=== PATIENT | male | born 1950 | race Caucasian/White ===

== ENCOUNTER 2016-12-01 14:43 | Emergency (ER) | payer MEDICARE, OTHER ==
[~2016-12-01] VITALS: Ht 180.3 cm; Wt 104.7 kg
[~2016-12-01 14:43] MED LIST: CLON.5 PO; CLON1TAB PO; ESCI10TA PO; HYDR1CAP30 PO; LISD60 PO; QUET1TAB7 PO; QUET1TAB8 PO
[2016-12-01 14:54] VITALS: BP 112/67; PULSE 77; RESP 18; TEMP 98.1; O2SAT 92
[2016-12-01] MEDS ORDERED: OXYC-395 PO (15:08)
--- NOTE | 2016-12-01 15:31 | PD ---
HPI Chief Complaint: Pain: Acute or Chronic Time Seen by Provider: 15:26 Travel History International Travel<30 days: No Contact w/Intl Traveler<30days: No Traveled to known affect area: No History of Present Illness HPI 66-year-old male with a history of diabetes, anxiety and depression presents to the emergency department for evaluation of left foot pain for 4 weeks. Patient states that 4 weeks ago he was walking in his home and his shoe got caught underneath a door causing him to have to jerk and pull it out which caused him to hit the medial posterior aspect of his heel on a bar. States that he's had pain in this location since this occurred. Aggravated with walking. States that he has been soaking the foot in Epsom salts without improvement of symptoms. States that he thought it would go away on its own but the symptoms have persisted which is why he now presents for evaluation. Denies any fever, chills, nausea, vomiting, numbness or tingling, weakness, abrasions, swelling, redness or warmth. No other complaints. PFSH Past Medical History ADHD: Yes Arthritis: Yes Autoimmune Disease: No Blood Disorders: No Anxiety: Yes Depression: Yes Cancer: No Cardiovascular Problems: No High Cholesterol: Yes Diabetes: Yes Patient Takes Glucophage: No Diminished Hearing: No Endocrine: No Genitourinary: No Headaches: No Hepatitis: Yes (HEP C+) Immune Disorder: No Musculoskeletal: Yes Neurologic: No Psychiatric: Yes (anxiety, depression) Respiratory: No Immunizations Current: Yes Seizures: No Tetanus Vaccination: > 5 Years Influenza Vaccination: No Social History Alcohol Use: No (PAST HEAVY) Tobacco Use: No (POT IN PAST) Substance Use: No (Denies) Allergies-Medications (Allergen,Severity, Reaction): Coded Allergies: Morphine (Verified Adverse Reaction, Intermediate, CAUSES CHEST APIN, ) Reported Meds & Prescriptions Reported Meds & Active Scripts Active Klonopin (Clonazepam) 0.5 Mg Tab 0.5 Mg PO Q8HR Quetiapine (Quetiapine Fumarate) 25 Mg Tab 25 Mg PO BID@09,12 Quetiapine (Quetiapine Fumarate) 100 Mg Tab 100 Mg PO HS Escitalopram (Escitalopram Oxalate) 10 Mg Tab 10 Mg PO DAILY Reported Oxycodone (Oxycodone HCl) 10 Mg Tab 10 Mg PO Q6H PRN Hydroxyzine Pamoate 25 Mg Cap 50 Mg PO Q6H PRN Clonazepam 1 Mg Tab 1 Mg PO BID Vyvanse (Lisdexamfetamine Dimesylate) 60 Mg Cap 60 Mg PO DAILY Review of Systems Except as stated in HPI: all other systems reviewed are Neg Physical Exam Narrative GENERAL: Well-nourished and well-developed pleasant male patient in no acute distress who is nontoxic appearing. SKIN: Warm and dry. HEAD: Normocephalic and atraumatic. EYES: No injection, drainage, or hyphema noted. PERRLA. EOMI. ENT: No nasal drainage noted. Oropharynx is clear. NECK: Supple and the trachea is midline. CARDIOVASCULAR: Regular rate and rhythm. RESPIRATORY: Breath sounds are equal bilaterally with no accessory muscle use, wheezing, rhonchi, or crackles. EXTREMITY: The left medial posterior foot and heel is tender to palpation. No swelling, deformity, contusion, redness or warmth. The skin is intact and there is no ligamentous instability. The foot and toes are warm and well- perfused. Sensation to pain and light touch is intact. DP pulses are 2+ bilaterally. Normal Oneal's test. NEUROLOGICAL: Awake, alert, and oriented. Normal speech and gait. Cranial nerves are grossly intact. Data Data Last Documented VS Vital Signs Date Time Temp Pulse Resp B/P Pulse Ox O2 Delivery O2 Flow Rate FiO2 12/01/16 14:54 98.1 77 18 112/67 92 Orders Foot, Complete ([id number]) (12/01/16 15:25) Splint Or Brace Apply/Monitor (12/01/16 16:10) MDM Medical Decision Making Medical Screen Exam Complete: Yes Emergency Medical Condition: Yes Differential Diagnosis Contusion versus plantar fasciitis versus sprain versus heel spur Narrative Course 66-year-old male presents to the emergency department for evaluation of left heel and posterior foot pain for 4 weeks after injuring the foot. Patient is afebrile, vital signs are stable. The patient's left foot is neurovascularly intact. X-ray imaging has been ordered and is pending. X-ray imaging shows a spur at the insertion site of the Achilles tendon, no acute abnormalities. I suspect that his heel spur is the etiology of the patient's pain. Discussed supportive care with him. He is requesting an hima wrap for comfort and is provided one here in the ED. He is advised to follow-up with a History Professor as an outpatient. Patient verbalizes understanding and agreement with treatment plan. Diagnosis Primary Impression: Heel spur Qualified Code: M77.32 - Heel spur, left Referrals: History Professor Patient Instructions: General Instructions, Heel Spur (ED) Additional Instructions: Follow-up with your Primary Care Physician or a History Professor. Return to the ED for any acute worsening of symptoms. Med/Other Pt SpecificInfo: No Change to Meds Disposition: 01 DISCHARGE HOME Condition: Stable Cheri Layton Dec 01, 2016 15:31
--- NOTE | 2016-12-01 15:52 | RADHPO ---
EXAM DATE/TIME: 12/01/2016 15:33 [facility] COMPARISON: HUMERUS LEFT (MIN 2VWS), August 27, 2013, 16:43. INDICATIONS : Left heel pain after being wedged in door. MEDICAL HISTORY : None. SURGICAL HISTORY : None. ENCOUNTER: Initial ACUITY: 3 weeks PAIN SCORE: 7/10 LOCATION: Left foot FINDINGS: The osseous structures are intact. Incidental note is made of a spur at the insertion of the Achilles tendon. No acute fracture of the calcaneus is seen. No significant soft tissue swelling is identifie d. CONCLUSION: 1. No acute fracture identified. Dexter Hutchinson MD on December 01, 2016 at 15:50 Board Certified Radiologist. This report was verified electronically.
== END 2016-12-01 16:17 | disposition home or self-care (01) ==
LOC: PHEFT 14:43
DX: M77.32 Calcaneal spur, left foot (principal); E78.00 Pure hypercholesterolemia, unspecified; E11.9 Type 2 diabetes mellitus without complications; B19.20 Unspecified viral hepatitis C without hepatic coma
CPT/HCPCS: 73630; 99283

== ENCOUNTER 2017-05-03 10:22 | Emergency (ER) | payer OTHER ==
[~2017-05-03] VITALS: Ht 175.3 cm; Wt 96.0 kg
[~2017-05-03 10:22] MED LIST changes: +OXYC-395 PO
[2017-05-03 10:27] VITALS: BP 130/68; PULSE 80; RESP 18; TEMP 98.7; O2SAT 98
[2017-05-03] MEDS ORDERED: LORazepam 1 MG TAB PO ONE (10:45)
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
== END 2017-05-03 11:50 | disposition home or self-care (01) ==
LOC: PHED 10:22
DX: F32.9 Major depressive disorder, single episode, unspecified (principal); G89.29 Other chronic pain; E11.9 Type 2 diabetes mellitus without complications; B19.20 Unspecified viral hepatitis C without hepatic coma
CPT/HCPCS: 99283

== ENCOUNTER 2017-05-05 10:04 | Emergency (ER) | payer OTHER ==
[~2017-05-05] VITALS: Ht 175.3 cm; Wt 90.0 kg
[~2017-05-05 10:04] MED LIST changes: -CLON.5 PO; -HYDR1CAP30 PO; -LISD60 PO; -OXYC-395 PO; -QUET1TAB7 PO; -QUET1TAB8 PO
[2017-05-05 10:11] VITALS: BP 98/52; PULSE 76; RESP 18; TEMP 98; O2SAT 96
[2017-05-05] MEDS ORDERED: SODIUM CHLOR 0.9% 1000 ML INJ 1,000 ML IV SCH (10:17)
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
[2017-05-05] MEDS ORDERED: LORazepam 2 MG/ML VIAL IV PUSH ONE (10:30)
[2017-05-05] MEDS ORDERED: SODIUM CHLORIDE 0.9% FLUSH 10 ML FLUSH IV FLUSH PRN (10:30)
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
[2017-05-05] MEDS ORDERED: LIDOCAINE HCL 1% 50 ML VIAL INFIL ONE (11:00)
[2017-05-05] MEDS ORDERED: TETANUS/DIPHTHERIA TOXOID ADULT 0.5 ML VIAL IM ONE (11:00)
[2017-05-05 11:12] LABS: AUTOMATED NEUTROPHIL # 2.9 TH/MM3 (1.8-7.7); BASOPHIL % 0.4 % (0.0-2.0); EOSINOPHIL # 0.2 TH/MM3 (0-0.4); EOSINOPHIL % 3.2 % (0.0-4.0); HEMATOCRIT 45.9 % (39.0-51.0); HEMO FLAGS DIFF FINAL; LYMPH % 37.1 % (9.0-44.0); LYMPHOCYTE # 2.1 TH/MM3 (1.0-4.8); MEAN CELL VOLUME 96.3 FL (80.0-100.0); MEAN CORPUSCULAR HEMOGLOBIN 32.8 PG (27.0-34.0); MEAN CORPUSCULAR HGB CONC 34.1 % (32.0-36.0); MONO % 8.5 % (0.0-8.0); NEUT % 50.8 % (16.0-70.0); PLATELET COUNT 114 TH/MM3 (150-450); RED BLOOD COUNT 4.77 MIL/MM3 (4.50-5.90); RED CELL DISTRIBUTION WIDTH 13.4 % (11.6-17.2); WHITE BLOOD COUNT 5.8 TH/MM3 (4.0-11.0)
[2017-05-05 11:26] LABS: PROTHROMBIN TIME - PATIENT 11.3 SEC (9.8-11.6)
[2017-05-05 11:35] LABS: ALT (GPT) 79 U/L (12-78); ANION GAP 8 MEQ/L (5-15); AST (GOT) 55 U/L (15-37); BICARBONATE 25.4 MEQ/L (21.0-32.0); BLOOD UREA NITROGEN 10 MG/DL (7-18); CHLORIDE 106 MEQ/L (98-107); GLOMERULAR FILTRATION RATE 67 ML/MIN (>89); SODIUM (NA) 139 MEQ/L (136-145)
[2017-05-05 11:36] LABS: ALKALINE PHOSPHATASE 45 U/L (45-117); TOTAL BILIRUBIN ADULT 0.9 MG/DL (0.2-1.0)
[2017-05-05] MEDS ORDERED: IOHEXOL 350 MG/ML 10 ML VIAL (for RAD DIAG) IVCONTRAST ONE (14:00)
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
[2017-05-05] MEDS ORDERED: ROBA500T PO (14:59)
[2017-05-06] MEDS ORDERED: VIST25CA PO (11:07)
[2017-05-06] MEDS ORDERED: GLIP10TA6 PO (11:07)
== END 2017-05-05 15:44 | disposition home or self-care (01) ==
LOC: NEPD 10:04
DX: S61.216A Laceration without foreign body of right little finger without damage to nail, initial encounter (principal); K76.0 Fatty (change of) liver, not elsewhere classified; R16.1 Splenomegaly, not elsewhere classified; F41.9 Anxiety disorder, unspecified; M19.90 Unspecified osteoarthritis, unspecified site; E11.9 Type 2 diabetes mellitus without complications; V43.52XA Car driver injured in collision with other type car in traffic accident, initial encounter; Z86.19 Personal history of other infectious and parasitic diseases; Z23 Encounter for immunization
CPT/HCPCS: 12001; 70450; 71010; 72125; 74177; 80053; 85025; 85610; 85730; 90471; 90714; 96361; 96374; 99285; J2060; J7030; Q9967

== ENCOUNTER 2017-05-06 10:35 | Emergency (ER) | payer OTHER ==
[~2017-05-06] VITALS: Ht 177.8 cm; Wt 100.0 kg
[~2017-05-06 10:35] MED LIST changes: +ROBA500T PO
[2017-05-06 10:51] VITALS: BP 129/63; PULSE 82; RESP 24; TEMP 98.4; O2SAT 96
[2017-05-06] MEDS ORDERED: GLIP10TA6 PO (11:07)
[2017-05-06] MEDS ORDERED: VIST25CA PO (11:07)
--- NOTE | 2017-05-06 11:10 | PD ---
HPI Chief Complaint: Medical Clearance Time Seen by Provider: 10:57 Travel History International Travel<30 days: No Contact w/Intl Traveler<30days: No Traveled to known affect area: No History of Present Illness HPI This patient complains of anxiety symptoms. He came from across the street where he was staying [facility]. He feels nervous and anxious. He also is worried about a blood sugar being high. Accu-Chek was 138 in triage. Symptoms severity is mild PFSH Past Medical History ADHD: Yes Arthritis: Yes Autoimmune Disease: No Blood Disorders: No Anxiety: Yes Depression: Yes Cancer: No Cardiovascular Problems: No High Cholesterol: Yes Diabetes: Yes Patient Takes Glucophage: No Diminished Hearing: No Endocrine: No Genitourinary: No Headaches: No Hepatitis: Yes (HEP C+) Immune Disorder: No Musculoskeletal: Yes Neurologic: No Psychiatric: Yes (anxiety, depression) Reproductive: No Respiratory: No Immunizations Current: Yes Seizures: No Social History Alcohol Use: No (PAST HEAVY) Tobacco Use: No Substance Use: No (Denies) Allergies-Medications (Allergen,Severity, Reaction): Coded Allergies: morphine (Unverified Adverse Reaction, Intermediate, CAUSES CHEST APIN, 06/12) Reported Meds & Prescriptions Reported Meds & Active Scripts Active Vistaril (Hydroxyzine Pamoate) 25 Mg Cap 25 Mg PO TID PRN Glipizide 10 Mg Tab 10 Mg PO DAILY Take 30 minutes before a meal Robaxin (Methocarbamol) 500 Mg Tab 500 Mg PO QID PRN Escitalopram (Escitalopram Oxalate) 10 Mg Tab 10 Mg PO DAILY Reported Clonazepam 1 Mg Tab 1 Mg PO BID Review of Systems General / Constitutional: No: Fever HENT: No: Headaches Cardiovascular: No: Chest Pain or Discomfort Physical Exam Narrative GASTROINTESTINAL: Abdomen soft, non-tender, nondistended. Positive bowel sounds. No hepato-splenomegaly, or palpable masses. No guarding. CARDIOVASCULAR: Regular rate and rhythm without murmur. Extremities showed no edema or varicosities. Data Data Last Documented VS Vital Signs Date Time Temp Pulse Resp B/P (MAP) Pulse Ox O2 Delivery O2 Flow Rate FiO2 05/06/17 10:51 98.4 82 24 129/63 (85) 96 Room Air MDM Medical Decision Making Medical Screen Exam Complete: Yes Emergency Medical Condition: Yes Medical Record Reviewed: Yes Differential Diagnosis Anxiety, panic, malingering Narrative Course I have reviewed the patient's electronic medical record. Patient had extensive workup yesterday which was negative I gave the patient and dose of oral Ativan here and prescription for Vistaril and refilled his glipizide Stable for return to the care home Diagnosis Primary Impression: Anxiety attack Additional Impression: Medication refill Additional Instructions: The patient was advised to follow up with their physician and return if they worsen. The patient was warned about potential sedation for the medications they will receive on prescription. Med/Other Pt SpecificInfo: Prescription(s) given Scripts Hydroxyzine Pamoate (Vistaril) 25 Mg Cap 25 MG PO TID Y for ANXIETY, #15 CAP 0 Refills Prov: Ankur Patel MD 05/06/17 Glipizide (Glipizide) 10 Mg Tab 10 MG PO DAILY for Blood Sugar Management, #30 TAB 0 Refills Take 30 minutes before a meal Prov: Ankur Patel MD 05/06/17 Disposition: 01 DISCHARGE HOME Condition: Stable Ankur Patel MD May 06, 2017 11:10
[2017-05-06] MEDS ORDERED: LORazepam 1 MG TAB PO ONE (11:15)
== END 2017-05-06 13:46 | disposition home or self-care (01) ==
LOC: NEPD 10:35
DX: F41.9 Anxiety disorder, unspecified (principal)
CPT/HCPCS: 99284

== ENCOUNTER 2017-06-22 18:36 | Emergency (ER) | payer OTHER ==
[~2017-06-22] VITALS: Ht 175.3 cm; Wt 95.5 kg
[~2017-06-22 18:36] MED LIST changes: +GLIP10TA6 PO; +VIST25CA PO
[2017-06-22 18:38] VITALS: BP 130/71; PULSE 87; RESP 14; TEMP 99; O2SAT 96
[2017-06-22 19:41] VITALS: BP 143/77; PULSE 83; RESP 14; O2SAT 97
[2017-06-22] MEDS ORDERED: QUET5TAB PO ×2 (19:52)
[2017-06-22] MEDS ORDERED: TEMA30CA PO ×2 (19:52)
[2017-06-22] MEDS ORDERED: ZOLP10TA3 PO ×2 (19:52)
[2017-06-22] MEDS ORDERED: DIAZ10TA PO ×2 (19:52)
[2017-06-22] MEDS ORDERED: GLIP5TAB8 PO ×2 (19:52)
[2017-06-22] MEDS ORDERED: OMEP20TA PO ×2 (19:52)
--- NOTE | 2017-06-22 19:52 | PD ---
HPI Chief Complaint: General Weakness Time Seen by Provider: 19:37 Travel History International Travel<30 days: No Contact w/Intl Traveler<30days: No Traveled to known affect area: No History of Present Illness HPI This is a 66 year old male who presents to the emergency department with jitteriness that's been going on for 2 weeks, worsening, feeling like he is restless, can't get comfortable in his own skin. His symptoms of a constant, moderate severity and are limiting him from sleeping. He feels like his symptoms have started ever since he was put on quetiapine and diazepam by his primary care physician for anxiety. He denies any history of mental illness. He denies any headaches, weakness, numbness or other neurologic symptoms. PFSH Past Medical History ADHD: Yes Arthritis: Yes Autoimmune Disease: No Blood Disorders: No Anxiety: Yes Depression: Yes Cancer: No Cardiovascular Problems: No High Cholesterol: Yes Diabetes: Yes Diminished Hearing: No Endocrine: No Genitourinary: No Headaches: No Hepatitis: Yes (HEP C+) Immune Disorder: No Musculoskeletal: Yes Neurologic: No Psychiatric: Yes (anxiety, depression) Reproductive: No Respiratory: No Immunizations Current: Yes Seizures: No Social History Alcohol Use: No (PAST HEAVY) Tobacco Use: No Substance Use: No (Denies) Allergies-Medications (Allergen,Severity, Reaction): Coded Allergies: morphine (Unverified Adverse Reaction, Intermediate, CAUSES CHEST APIN, 06/12) Reported Meds & Prescriptions Reported Meds & Active Scripts Active Reported Omeprazole 20 Mg Tab 20 Mg PO DAILY Temazepam 30 Mg Cap 30 Mg PO HS PRN Zolpidem (Zolpidem Tartrate) 10 Mg Tab 10 Mg PO HS PRN Quetiapine (Quetiapine Fumarate) 50 Mg Tab 50 Mg PO BID Glipizide 5 Mg Tab 5 Mg PO BIDAC Take 30 minutes before a meal Diazepam 10 Mg Tab 10 Mg PO QID PRN Review of Systems Except as stated in HPI: all other systems reviewed are Neg Physical Exam Narrative GENERAL:Well appearing, no acute distress SKIN: Focused skin assessment warm and dry. HEAD: Atraumatic. Normocephalic. EYES: Pupils equal and round. No injection or drainage. ENT: Moist mucous membranes NECK: Trachea midline. CARDIOVASCULAR: Regular rate and rhythm. No murmur appreciated. RESPIRATORY: Clear to auscultation. Breath sounds equal bilaterally. GASTROINTESTINAL: Abdomen soft, non-tender, nondistended. MUSCULOSKELETAL: No obvious deformities. NEUROLOGICAL: Awake and alert. No obvious cranial nerve deficits. Moving all extremities. PSYCHIATRIC: Appropriate mood and affect; insight and judgment normal. Data Data Last Documented VS Vital Signs Date Time Temp Pulse Resp B/P (MAP) Pulse Ox O2 Delivery O2 Flow Rate FiO2 06/22/17 19:42 82 14 97 Room Air 06/22/17 19:41 143/77 (99) 06/22/17 18:38 99.0 MDM Medical Decision Making Medical Screen Exam Complete: Yes Emergency Medical Condition: Yes Interpretation(s) afebrile, no tachycardia, normotensive Differential Diagnosis extrapyramidal side effects, anxiety, panic attack, seizure, tremor Narrative Course This is a 66 year old male who presents to the emergency department with increasing jitteriness described as feeling restless in his skin. I suspect these are extrapyramidal side effects from his quetiapine. I advised that the patient discontinue quetiapine and use Cogentin as needed for symptoms until they subside. He was asked to follow-up with his primary care physician as soon as possible to discuss a change in medications. Diagnosis Primary Impression: Extrapyramidal reaction Patient Instructions: General Instructions Additional Instructions: If you develop severe worsening headache, persistent vomiting, numbness, weakness, difficulty walking or difficulty talking return to the emergency department immediately. Follow-up with your primary care physician regarding the changes in your medicine. Med/Other Pt SpecificInfo: Prescription(s) given, Med Stopped Scripts Benztropine (Benztropine) 0.5 Mg Tab 0.5 MG PO HS, #10 TAB 0 Refills Prov: Sandra De Leon MD 06/22/17 Disposition: 01 DISCHARGE HOME Condition: Stable Sandra De Leon MD Jun 22, 2017 19:52
[2017-06-22] MEDS ORDERED: BENZ0.5T PO ×2 (19:55)
[2017-06-22] MEDS ORDERED: BENZTROPINE MESYLATE 1 MG TAB PO ONE ×2 (20:00)
== END 2017-06-22 20:30 | disposition home or self-care (01) ==
LOC: NEPC 18:36
DX: G25.9 Extrapyramidal and movement disorder, unspecified (principal); F90.9 Attention-deficit hyperactivity disorder, unspecified type; M19.90 Unspecified osteoarthritis, unspecified site; F41.9 Anxiety disorder, unspecified; F32.9 Major depressive disorder, single episode, unspecified; E78.00 Pure hypercholesterolemia, unspecified; E11.9 Type 2 diabetes mellitus without complications; B19.20 Unspecified viral hepatitis C without hepatic coma; Z79.899 Other long term (current) drug therapy
CPT/HCPCS: 99283

== ENCOUNTER 2017-07-29 11:41 | Emergency (ER) | payer OTHER ==
[~2017-07-29] VITALS: Ht 175.3 cm; Wt 98.0 kg
[~2017-07-29 11:41] MED LIST changes: +BENZ0.5T PO; -CLON1TAB PO; +DIAZ10TA PO; -ESCI10TA PO; -GLIP10TA6 PO; +GLIP5TAB8 PO; +OMEP20TA93 PO; +QUET5TAB PO; -ROBA500T PO; +TEMA30CA PO; -VIST25CA PO; +ZOLP10TA3 PO
[2017-07-29 11:43] VITALS: BP 119/70; PULSE 70; RESP 22; TEMP 98.1; O2SAT 96
[2017-07-29] MEDS ORDERED: HYDR-3580 PO (12:10)
[2017-07-29] MEDS ORDERED: OXCA300T PO (12:10)
[2017-07-29] MEDS ORDERED: VIST25CA PO (12:39)
--- NOTE | 2017-07-29 12:39 | PD ---
HPI Chief Complaint: Medical Clearance Time Seen by Provider: 12:27 Travel History International Travel<30 days: No Contact w/Intl Traveler<30days: No Traveled to known affect area: No History of Present Illness HPI 66-year-old male complains of anxiety and insomnia. Patient has history chronic insomnia and anxiety. Patient was seen by personal physician recently and given prescription for diazepam. Patient states that he has anxiety and insomnia despite taking diazepam. Patient also has been taking zolpidem for insomnia. Patient denies any headache. Patient denies any chest pain or shortness of breath. Patient denies abdominal pain. Patient denies any nausea vomiting. Patient denies any fever chills. Patient has been taking hydrocodone for chronic pain. PFSH Past Medical History ADHD: Yes Arthritis: Yes Autoimmune Disease: No Blood Disorders: No Anxiety: Yes Depression: Yes Cancer: No Cardiovascular Problems: No High Cholesterol: Yes Diabetes: Yes Patient Takes Glucophage: No Diminished Hearing: No Endocrine: No Genitourinary: No Headaches: No Hepatitis: Yes (HEP C+) Immune Disorder: No Musculoskeletal: Yes Neurologic: No Psychiatric: Yes (anxiety, depression) Reproductive: No Respiratory: No Immunizations Current: Yes Seizures: No Social History Alcohol Use: No (PAST HEAVY) Tobacco Use: No Substance Use: No (Denies) Allergies-Medications (Allergen,Severity, Reaction): Coded Allergies: morphine (Unverified Adverse Reaction, Intermediate, CAUSES CHEST APIN, ) Reported Meds & Prescriptions Reported Meds & Active Scripts Active Benztropine (Benztropine Mesylate) 0.5 Mg Tab 0.5 Mg PO HS Reported Hydrocodone-Acetaminophen 7.5 Mg-325 Mg Tab 1 Tab PO TID PRN Oxcarbazepine 300 Mg Tab 300 Mg PO BID Omeprazole 20 Mg Tab 20 Mg PO DAILY Zolpidem (Zolpidem Tartrate) 10 Mg Tab 10 Mg PO HS PRN Glipizide 5 Mg Tab 5 Mg PO BIDAC Take 30 minutes before a meal Diazepam 10 Mg Tab 10 Mg PO QID PRN Review of Systems General / Constitutional: No: Fever Eyes: No: Visual changes HENT: No: Headaches Cardiovascular: No: Chest Pain or Discomfort Respiratory: No: Shortness of Breath Gastrointestinal: No: Abdominal Pain Genitourinary: No: Dysuria Musculoskeletal: No: Pain Skin: No Rash Neurologic: No: Weakness Psychiatric: No: Depression Endocrine: No: Polydipsia Hematologic/Lymphatic: No: Easy Bruising Physical Exam Narrative GENERAL: Well-nourished, well-developed patient. SKIN: Focused skin assessment warm/dry. HEAD: Normocephalic. EYES: No scleral icterus. No injection or drainage. NECK: Supple, trachea midline. No JVD or lymphadenopathy. CARDIOVASCULAR: Regular rate and rhythm without murmurs, gallops, or rubs. RESPIRATORY: Breath sounds equal bilaterally. No accessory muscle use. GASTROINTESTINAL: Abdomen soft, non-tender, nondistended. MUSCULOSKELETAL: No cyanosis, or edema. BACK: Nontender without obvious deformity. No CVA tenderness. Neurologic exam normal. Data Data Last Documented VS Vital Signs Date Time Temp Pulse Resp B/P (MAP) Pulse Ox O2 Delivery O2 Flow Rate FiO2 07/29/17 11:43 98.1 70 22 119/70 (86) 96 MDM Medical Decision Making Medical Screen Exam Complete: Yes Emergency Medical Condition: Yes Differential Diagnosis Differential diagnosis including insomnia, anxiety. Narrative Course 66-year-old male with anxiety and insomnia. Diagnosis Primary Impression: Generalized anxiety disorder Additional Impression: Insomnia Qualified Codes: F51.01 - Primary insomnia Patient Instructions: General Instructions Additional Instructions: Vistaril as needed. Follow-up with local physician. Med/Other Pt SpecificInfo: Prescription(s) given Scripts Hydroxyzine Pamoate (Vistaril) 25 Mg Cap 25 MG PO TID Y for ANXIETY, #30 CAP 0 Refills Prov: Prosper Stahl MD 07/29/17 Disposition: 01 DISCHARGE HOME Condition: Stable Prosper Stahl MD Jul 29, 2017 12:39
== END 2017-07-29 12:55 | disposition home or self-care (01) ==
LOC: NEPD 11:41
DX: F41.1 Generalized anxiety disorder (principal); G47.00 Insomnia, unspecified; F90.9 Attention-deficit hyperactivity disorder, unspecified type; E78.00 Pure hypercholesterolemia, unspecified; E11.9 Type 2 diabetes mellitus without complications; Z86.19 Personal history of other infectious and parasitic diseases
CPT/HCPCS: 99283

== ENCOUNTER 2017-09-01 13:43 | Emergency (ER) | payer OTHER ==
[~2017-09-01] VITALS: Ht 175.3 cm; Wt 94.2 kg
[~2017-09-01 13:43] MED LIST changes: +HYDR-3580 PO; +OXCA300T PO; -QUET5TAB PO; -TEMA30CA PO; +VIST25CA PO
[2017-09-01 13:59] VITALS: BP 119/66; PULSE 72; RESP 16; TEMP 97.9; O2SAT 96
[2017-09-01] MEDS ORDERED: ZOLP5TAB3 PO (14:48)
[2017-09-01] MEDS ORDERED: CIPR500T2 PO (14:48)
[2017-09-01] MEDS ORDERED: DIAZ5TAB PO (14:48)
[2017-09-01] MEDS ORDERED: LOMO2.5T PO (14:48)
[2017-09-01] MEDS ORDERED: LORazepam 1 MG TAB PO ONE (15:00)
--- NOTE | 2017-09-01 15:45 | PD ---
HPI Chief Complaint: Anxiety Time Seen by Provider: 14:18 Travel History International Travel<30 days: No Contact w/Intl Traveler<30days: No Traveled to known affect area: No History of Present Illness HPI This is a 66-year-old male who has a history of anxiety who presents to the emergency department with a panic attack. He says he feels very anxious, constant, severe, feels jitteriness in skin and is having trouble sleeping. He' s had this problem in the past for several months. He sees a psychiatrist who has recently titrated many of his medications but he is not sure what changes have been made. He thinks he has just been prescribed hydroxyzine. Additionally his primary care doctor put him on Lomotil because he was having diarrhea. He also is on Trileptal which he has been taking for 3 weeks but says he doesn't have seizures. He comes with his [id number] who is concerned because the patient used to be very functional and seems to be deteriorating and not doing well on all of the medications that he is on. PFSH Past Medical History ADHD: Yes Arthritis: Yes Autoimmune Disease: No Blood Disorders: No Anxiety: Yes Depression: Yes Cancer: No Cardiovascular Problems: No High Cholesterol: Yes Diabetes: Yes (type 2) Patient Takes Glucophage: No Diminished Hearing: No Endocrine: No Genitourinary: No Headaches: No Hepatitis: Yes (HEP C+) Immune Disorder: No Musculoskeletal: Yes Neurologic: No Psychiatric: Yes (anxiety, depression) Reproductive: No Respiratory: No Immunizations Current: Yes Seizures: No Social History Alcohol Use: No (QUIT) Tobacco Use: No (NEVER) Substance Use: No (Denies) Allergies-Medications (Allergen,Severity, Reaction): Coded Allergies: morphine (Unverified Adverse Reaction, Intermediate, CAUSES CHEST APIN, 09/01/17) Reported Meds & Prescriptions Reported Meds & Active Scripts Active Vistaril (Hydroxyzine Pamoate) 25 Mg Cap 25 Mg PO TID PRN Reported Lomotil (Diphenoxylate-Atropine) 2.5-0.025 Mg Tab 1 Tab PO Q6H PRN Ciprofloxacin (Ciprofloxacin HCl) 500 Mg Tab 500 Mg PO BID Zolpidem (Zolpidem Tartrate) 5 Mg Tab 5 Mg PO HS PRN Diazepam 5 Mg Tab 5 Mg PO DAILY Hydrocodone-Acetaminophen 7.5 Mg-325 Mg Tab 1 Tab PO TID PRN Oxcarbazepine 300 Mg Tab 300 Mg PO BID Glipizide 5 Mg Tab 5 Mg PO BIDAC Take 30 minutes before a meal Review of Systems Except as stated in HPI: all other systems reviewed are Neg Physical Exam Narrative GENERAL:Well appearing, no acute distress SKIN: Focused skin assessment warm and dry. HEAD: Atraumatic. Normocephalic. EYES: Pupils equal and round. No injection or drainage. ENT: Moist mucous membranes NECK: Trachea midline. CARDIOVASCULAR: Regular rate and rhythm. No murmur appreciated. RESPIRATORY: Clear to auscultation. Breath sounds equal bilaterally. GASTROINTESTINAL: Abdomen soft, non-tender, nondistended. MUSCULOSKELETAL: No obvious deformities. NEUROLOGICAL: Awake and alert. No obvious cranial nerve deficits. Moving all extremities. PSYCHIATRIC: Anxious with some pressured speech. No suicidal or homicidal ideation.. Data Data Last Documented VS Vital Signs Date Time Temp Pulse Resp B/P (MAP) Pulse Ox O2 Delivery O2 Flow Rate FiO2 09/01/17 13:59 97.9 72 16 119/66 (83) 96 Orders Orders Lorazepam (Ativan) (09/01/17 15:00) MDM Medical Decision Making Medical Screen Exam Complete: Yes Emergency Medical Condition: Yes Differential Diagnosis Anxiety, panic attack, polypharmacy Narrative Course This is a 66-year-old male who presents to the emergency department with anxiety which seems to be poorly controlled. He is taking both hydroxyzine and Lomotil, both which have anticholinergic side effects and could be contributing to his symptoms. He also was recently started on Trileptal but says he has no history of epilepsy. I think it's reasonable to stop the hydroxyzine, Lomotil and the Trileptal as these are all new medications. He can take diazepam as needed for anxiety. Patient was given a list of psychiatric resources. I think he's safe to be discharged with his [id number] who seems responsible and helpful. Patient will follow-up with outpatient.. Diagnosis Primary Impression: Polypharmacy Patient Instructions: General Instructions Additional Instructions: Stop taking : Oxcarbazepine Hydroxyzine Lomotil Take Diazepam as needed for anxiety Follow up with a psychiatrist or primary care physician as soon as possible. Follow up with Divya Villa in regards to psychiatric or substance related issues at: [address] [place] [address] Med/Other Pt SpecificInfo: Med Stopped Disposition: 01 DISCHARGE HOME Condition: Stable Sandra De Leon MD Sep 01, 2017 15:44
[2017-09-01 16:05] VITALS: BP 110/68
[2017-09-14] MEDS ORDERED: VIST25CA PO (18:58)
== END 2017-09-01 16:17 | disposition home or self-care (01) ==
LOC: PHED 13:43
DX: F41.0 Panic disorder [episodic paroxysmal anxiety] (principal); F32.9 Major depressive disorder, single episode, unspecified; F90.9 Attention-deficit hyperactivity disorder, unspecified type; E78.00 Pure hypercholesterolemia, unspecified; E11.9 Type 2 diabetes mellitus without complications; B19.20 Unspecified viral hepatitis C without hepatic coma
CPT/HCPCS: 99281

== ENCOUNTER 2017-09-14 11:44 | Emergency (ER) | payer OTHER ==
[2017-09-14] MEDS: LORazepam 1 MG TAB PO (13:23)
[2017-09-14 13:30] LABS: AUTOMATED NEUTROPHIL # 2.6 TH/MM3 (1.8-7.7); BASOPHIL % 0.8 % (0.0-2.0); EOSINOPHIL # 0.1 TH/MM3 (0-0.4); EOSINOPHIL % 2.3 % (0.0-4.0); HEMATOCRIT 47.8 % (39.0-51.0); HEMO FLAGS DIFF FINAL; HEMOGLOBIN 15.4 GM/DL (13.0-17.0); LYMPH % 45.2 % (9.0-44.0); LYMPHOCYTE # 2.7 TH/MM3 (1.0-4.8); MEAN CELL VOLUME 94.3 FL (80.0-100.0); MEAN CORPUSCULAR HEMOGLOBIN 30.5 PG (27.0-34.0); MEAN CORPUSCULAR HGB CONC 32.3 % (32.0-36.0); MEAN PLATELET VOLUME 7.4 FL (7.0-11.0); MONO % 7.9 % (0.0-8.0); MONOCYTE # 0.5 TH/MM3 (0-0.9); NEUT % 43.8 % (16.0-70.0); PLATELET COUNT 118 TH/MM3 (150-450); RED BLOOD COUNT 5.07 MIL/MM3 (4.50-5.90); RED CELL DISTRIBUTION WIDTH 13.1 % (11.6-17.2); WHITE BLOOD COUNT 5.9 TH/MM3 (4.0-11.0)
[2017-09-14 13:40] LABS: AMPHETAMINE, URINE NEG (NEG); BARBITURATES, URINE NEG (NEG); BENZODIAZEPINE,URINE POS (NEG); CANNABINOIDS, URINE NEG (NEG); COCAINE, URINE NEG (NEG)
[2017-09-14 13:45] LABS: CHLORIDE 108 MEQ/L (98-107); SODIUM (NA) 141 MEQ/L (136-145)
[2017-09-14 13:49] LABS: ANION GAP 8 MEQ/L (5-15); BICARBONATE 24.7 MEQ/L (21.0-32.0); BLOOD UREA NITROGEN 11 MG/DL (7-18); GLUCOSE,RANDOM 100 MG/DL (74-106)
[2017-09-14 13:52] LABS: GLOMERULAR FILTRATION RATE 67 ML/MIN (>89)
[2017-09-14 13:58] LABS: ALCOHOL LESS THAN 3 MG/DL (0-5)
== END 2017-09-14 19:12 | disposition home or self-care (01) ==
LOC: PHED 11:44 → NEPJ 19:12
DX: F41.1 Generalized anxiety disorder (principal); F90.9 Attention-deficit hyperactivity disorder, unspecified type; E78.00 Pure hypercholesterolemia, unspecified; E11.9 Type 2 diabetes mellitus without complications; B19.20 Unspecified viral hepatitis C without hepatic coma
CPT/HCPCS: 80048; 80307; 85025; 99284

== ENCOUNTER 2017-09-17 13:03 | Observation (INO) | payer OTHER ==
[2017-09-17] MEDS: ZOLPIDEM TARTRATE 5 MG TAB PO (22:00)
[2017-09-18] MEDS ORDERED: SODIUM CHLORIDE 0.9% FLUSH 10 ML FLUSH IVF (10:45)
[2017-09-18] MEDS: ASPIRIN 81 MG CHEW TAB PO (10:53)
[2017-09-18 11:23] LABS: AUTOMATED NEUTROPHIL # 2.6 TH/MM3 (1.8-7.7); BASOPHIL % 0.6 % (0.0-2.0); EOSINOPHIL # 0.2 TH/MM3 (0-0.4); EOSINOPHIL % 3.3 % (0.0-4.0); HEMATOCRIT 42.2 % (39.0-51.0); HEMOGLOBIN 14.6 GM/DL (13.0-17.0); LYMPH % 44.9 % (9.0-44.0); LYMPHOCYTE # 2.6 TH/MM3 (1.0-4.8); MEAN CELL VOLUME 94.5 FL (80.0-100.0); MEAN CORPUSCULAR HEMOGLOBIN 32.8 PG (27.0-34.0); MEAN CORPUSCULAR HGB CONC 34.7 % (32.0-36.0); MEAN PLATELET VOLUME 7.9 FL (7.0-11.0); MONO % 7.5 % (0.0-8.0); MONOCYTE # 0.4 TH/MM3 (0-0.9); NEUT % 43.7 % (16.0-70.0); PLATELET COUNT 97 TH/MM3 (150-450); RED BLOOD COUNT 4.47 MIL/MM3 (4.50-5.90); RED CELL DISTRIBUTION WIDTH 13.3 % (11.6-17.2); WHITE BLOOD COUNT 5.9 TH/MM3 (4.0-11.0)
[2017-09-18 11:29] LABS: HEMO FLAGS AUTO DIFF
[2017-09-18 11:32] LABS: APTT (PATIENT) 24.5 SEC (24.3-30.1); INTERNATIONAL NORMALIZED RATIO 1.1 RATIO; PROTHROMBIN TIME - PATIENT 10.7 SEC (9.8-11.6)
[2017-09-18 11:41] LABS: ANION GAP 5 MEQ/L (5-15); BICARBONATE 29.8 MEQ/L (21.0-32.0); BLOOD UREA NITROGEN 13 MG/DL (7-18); CALCIUM 8.8 MG/DL (8.5-10.1); CHLORIDE 107 MEQ/L (98-107); CREATININE 1.09 MG/DL (0.60-1.30); GLOMERULAR FILTRATION RATE 68 ML/MIN (>89); GLUCOSE,RANDOM 111 MG/DL (74-106); MAGNESIUM 2.5 MG/DL (1.5-2.5); SODIUM (NA) 142 MEQ/L (136-145)
[2017-09-18 11:46] LABS: CREATINE KINASE 49 U/L (39-308); TROPONIN I LESS THAN 0.02 NG/ML (0.02-0.05)
[2017-09-18 12:02] LABS: PLATELET ESTIMATE SMEAR LOW (NORMAL); PLATELET MORPHOLOGY NORMAL (NORMAL); SCAN/DIFF AUTO DIFF CONFIRMED
[2017-09-18] MEDS ORDERED: NITROGLYCERIN 0.4 MG SL 25 TABS/BTL SL (13:30)
[2017-09-18] MEDS ORDERED: ACETAMINOPHEN 500 MG CPLT PO (13:30)
[2017-09-18] MEDS: LORazepam 1 MG TAB PO ×2 (14:47→20:52)
[2017-09-18 14:49] LABS: TROPONIN I LESS THAN 0.02 NG/ML (0.02-0.05)
[2017-09-18 14:51] LABS: CREATINE KINASE 51 U/L (39-308)
[2017-09-18] MEDS ORDERED: GLUCAGON 1 MG/ML VIAL OTHER (17:45)
[2017-09-18] MEDS ORDERED: DEXTROSE 50% IN WATER 50 ML VIAL(D50) IV PUSH (17:45)
[2017-09-18 20:26] LABS: TROPONIN I LESS THAN 0.02 NG/ML (0.02-0.05)
[2017-09-18 20:38] LABS: CREATINE KINASE 45 U/L (39-308)
[2017-09-18] MEDS: SODIUM CHLORIDE 0.9% FLUSH 10 ML FLUSH IV FLUSH (20:52)
[2017-09-19] MEDS: ONDANSETRON HCL 4 MG/2 ML VIAL IV PUSH (01:23)
[2017-09-19] MEDS: LORazepam 1 MG TAB PO (07:27)
[2017-09-19] MEDS: ASPIRIN 325 MG TAB PO (09:00)
[2017-09-19] MEDS: SODIUM CHLORIDE 0.9% FLUSH 10 ML FLUSH IV FLUSH (09:00)
[2017-09-19] MEDS: REGADENOSON INJ 0.4 MG/5 ML SYR (10:50)
[2017-09-19] MEDS: PARoxetine HCL 20 MG TAB PO (12:00)
[2017-09-19] MEDS ORDERED: hydrOXYzine HCL 25 MG TAB PO (13:00)
== END 2017-09-19 13:49 | disposition home or self-care (01) ==
LOC: NEDA 09-18 12:25 → NEPHCDU 09-18 13:11 → NEPJ 13:03
DX: R07.89 Other chest pain (principal); R06.02 Shortness of breath; F41.1 Generalized anxiety disorder; E11.9 Type 2 diabetes mellitus without complications; R45.851 Suicidal ideations; I20.9 Angina pectoris, unspecified; I10 Essential (primary) hypertension; E78.00 Pure hypercholesterolemia, unspecified; B19.20 Unspecified viral hepatitis C without hepatic coma; F32.9 Major depressive disorder, single episode, unspecified; F13.20 Sedative, hypnotic or anxiolytic dependence, uncomplicated; M19.90 Unspecified osteoarthritis, unspecified site; Z79.899 Other long term (current) drug therapy; Z91.14 Patient's other noncompliance with medication regimen
CPT/HCPCS: 71045; 78452; 80048; 82550; 82948; 83735; 84484; 85025; 85610; 85730; 93005; 93017; 99285